=== PATIENT | male | born 1965 | race Caucasian/White ===

== ENCOUNTER 2023-04-18 12:53 | Observation (INO) | payer BC ==
[2023-04-18] VITALS (23 sets, daily range): BP systolic 100–155; BP diastolic 65–108
[~2023-04-18] VITALS: Ht 182.9 cm; Wt 68.7 kg
[2023-04-18] MEDS ORDERED: NORVASC10 M1 PO (13:07)
--- NOTE | 2023-04-18 13:10 | NUR ---
TO ROOM 12 VIA WC IN STABLE CONDITION.
[2023-04-18 13:37] LABS: BASO% 0.5 % (0-3); EOS% 1.1 % (0-8); HEMATOCRIT 43.8 % (39.0-50.0); HEMOGLOBIN 14.7 g/dl (14.0-18.0); IMMATURE GRANULOCYTES 0.1 % (0.0-5.0); LYMPH% 19.6 % (15-41); MEAN CELL VOLUME 96.5 fL CALC (80.0-100.0); MEAN CORPUSCULAR HGB 32.4 pG CALC (26.0-32.0); MEAN CORPUSCULAR HGB CONC 33.6 g/dL CAL (32.0-36.0); MONO% 6.8 % (2-13); NEUT# 6.14 thou/uL (1.82-7.42); NEUT% 71.9 % (42-76); RED BLOOD COUNT 4.54 mill/uL (4.70-6.10)
[2023-04-18 13:57] LABS: ALBUMIN 4.6 g/dL (3.2-5.0); ALKALINE PHOSPHATASE 101 u/l (38-126); ANION GAP 15 (6-22 (CALC)); BILIRUBIN, TOTAL 0.7 mg/dL (0.2-1.3); BUN 12 mg/dL (9-20); BUN/CREATININE RATIO 18 (12-20 (CALC)); CARBON DIOXIDE 29 mmol/l (22-30); CHLORIDE 98 mmol/l (95-108); CREATININE 0.7 mg/dL (0.7-1.3); ETHYL ALCOHOL 0 mg/dl (0-30); GFR FOR AFR.AMER. > 60 ML/MIN (>=60 (CALC)); GFR OTHER RACES > 60 ML/MIN (>=60 (CALC)); POTASSIUM 4.1 mmol/l (3.5-5.1); SGOT/AST 36 u/l (17-59); SODIUM 138 mmol/l (137-146); TOTAL PROTEIN 7.8 g/dL (6.3-8.2)
--- NOTE | 2023-04-18 14:37 | NUR ---
PT RESTING QUIETLY IN BED, AIRWAY PATENT, RESP EVEN AND NON LABORED,NO COMPLAINTS VOICED.
--- NOTE | 2023-04-18 15:30 | NUR ---
PT SITTING UP IN BED, AIRWAY PATENT, RESP EVEN AND NON LABORED, SKIN P/W/D. MONITOR SHOWS SR, SPOUSE AT BEDSIDE.
--- NOTE | 2023-04-18 16:30 | NUR ---
PT SITTING UP IN BED, EATING LUNCH, NO ACUTE DISTRESS NOTED. VSS. SPOUSE AT BEDSIDE.
--- NOTE | 2023-04-18 17:34 | NUR ---
PT VOICES NO COMPLAINTS OF PAIN OR DISCOMFORT AT THIS TIME. MONITOR SHOWS SR, NO ECTOPY.
--- NOTE | 2023-04-18 18:30 | NUR ---
NO CHANGE IN PT STATUS.
--- NOTE | 2023-04-18 19:30 | NUR ---
PT WITH HOB ELEVATED, NO COMPLAINTS VOICED.
[2023-04-19 04:31] VITALS: BP 116/77
[2023-04-19 06:00] LABS: HEMATOCRIT 40.5 % (39.0-50.0); HEMOGLOBIN 13.7 g/dl (14.0-18.0); MEAN CELL VOLUME 97.6 fL CALC (80.0-100.0); MEAN CORPUSCULAR HGB CONC 33.8 g/dL CAL (32.0-36.0); RED BLOOD COUNT 4.15 mill/uL (4.70-6.10)
[2023-04-19 06:11] LABS: ALBUMIN 3.7 g/dL (3.2-5.0); ALKALINE PHOSPHATASE 80 u/l (38-126); ANION GAP 9 (6-22 (CALC)); BILIRUBIN, TOTAL 0.7 mg/dL (0.2-1.3); BUN 15 mg/dL (9-20); BUN/CREATININE RATIO 23 (12-20 (CALC)); CARBON DIOXIDE 29 mmol/l (22-30); CHLORIDE 101 mmol/l (95-108); CREATININE 0.7 mg/dL (0.7-1.3); GFR FOR AFR.AMER. > 60 ML/MIN (>=60 (CALC)); GFR OTHER RACES > 60 ML/MIN (>=60 (CALC)); POTASSIUM 3.5 mmol/l (3.5-5.1); SGOT/AST 36 u/l (17-59); SODIUM 136 mmol/l (137-146); TOTAL PROTEIN 6.6 g/dL (6.3-8.2)
[2023-04-19 06:40] VITALS: BP 117/77
--- NOTE | 2023-04-19 08:00 | NUR ---
PT RESTING IN HIGH FOWLERS POSITION.A/OX3 ASSESSMENT AND VS COMPLETED. HEART RHYTHM TELE IN PLACE. RESPIRATIONS ON ROOM AIR. IV SITE NOTED. PT DENIES ADDIITONAL NEEDS AT THE TIME ALL SAFETY PRECAUTIONS IN PLACE.
[2023-04-19 11:28] VITALS: BP 131/86
--- NOTE | 2023-04-19 12:35 | NUR ---
PT AWAITING ECHO. PT DENIES ADDITIONAL NEEDS AT THE TIME ALL SAFETY PRECAUTIONS IN PLACE.WITH CALL LIGHT IN REACH.
[2023-04-19] MEDS ORDERED: NORVASC2.5 M1 PO (14:17)
[2023-04-19 15:25] VITALS: BP 123/80
--- NOTE | 2023-04-19 15:38 | NUR ---
Discharge instructions given. Patient verbalizes understanding of same. Discharged in stable condition via Ambulatory to Home with staff. All belongings sent with pt. IV REMOVED TELE REMOVED.
== END 2023-04-19 15:38 | disposition home or self-care (01) | DRG 312 ==
LOC: ED 12:53 → ED-I 13:29 → ED 13:29 → ED-I 14:00 → ED 14:40 → MS2 14:41
PROVIDERS: Family Medicine; ADMIT Student in an Organized Health Care Education/Training Program; ATTEND Student in an Organized Health Care Education/Training Program
DX: R55 Syncope and collapse (principal); I10 Essential (primary) hypertension; F17.200 Nicotine dependence, unspecified, uncomplicated; Z85.47 Personal history of malignant neoplasm of testis
CPT/HCPCS: G0378